=== PATIENT | male | born 1970 | race Caucasian/White ===

== ENCOUNTER 2016-08-30 16:26 | Emergency (ER) | payer SELFPAY ==
[~2016-08-30] VITALS: Ht 182.9 cm; Wt 88.5 kg
[2016-08-30 16:41] VITALS: BP_SYST 115
[2016-08-30] MEDS ORDERED: DIPH-TET-PERTUS Vaccine 0.5 ML VIAL (ADACEL) IM ONE (17:00)
[2016-08-30] MEDS ORDERED: LIDOCAINE 1% 10 MG/ML, 20 ML MDV IJ ONE (17:00)
[2016-08-30] MEDS ORDERED: KETOROLAC TROMETHAMINE 30 MG VIAL IVP ONE (17:00)
[2016-08-30] MEDS ORDERED: BACITRACIN 1 GM OINT TP ONE (17:00)
[2016-08-30] MEDS ORDERED: CEPHALEXIN 500 MG CAPSULE PO ONE (17:45)
[2016-08-30] MEDS ORDERED: IBUPROFEN 600 MG TABLET PO ONE (17:45)
[2016-08-30] MEDS ORDERED: LIDOCAINE 1%, 20 ML MDV 20 ML ONE (17:51)
[2016-08-30 18:48] VITALS: BP_SYST 112
== END 2016-08-30 18:48 | disposition home or self-care (01) ==
LOC: SED 16:26
DX: S41.111A Laceration without foreign body of right upper arm, initial encounter (principal); W17.89XA Other fall from one level to another, initial encounter; Y93.89 Activity, other specified; Y99.8 Other external cause status; Y92.89 Other specified places as the place of occurrence of the external cause
CPT/HCPCS: 12034; 99284; J2001